=== PATIENT | male | born 1950 | race Caucasian/White ===

== ENCOUNTER 2019-01-05 21:39 | Inpatient (IN) ==
[2019-01-05] MEDS ORDERED: IOPAMIDOL 100 ML BOTTLE IV ONE (21:40)
[2019-01-05] MEDS ORDERED: 0.9 % SODIUM CHLORIDE 1,000 ML IV ONE (22:06)
[2019-01-05] MEDS ORDERED: methylPREDNISolone SOD SUCC 125 MG/2 ML VIAL IV ONE (22:06)
--- NOTE | 2019-01-05 22:11 | Emergency Department Note ---
SOB HPI - General Chief Complaint: Shortness of Breath/Dyspnea Stated Complaint: Short of breath Time Seen by Provider: 01/05/19 21:43 Source: patient Mode of arrival: ambulatory Limitations: no limitations - History of Present Illness 68-year-old male with a 2-day history of cough congestion and dyspnea. He is a smoker although he is cut back to 1-2 cigarettes/day about a year ago. EMS found him with oxygen levels around 88% so they started oxygen and gave him a breathing treatment en route. This did help but he is still requiring oxygen with exertion or coughing. Denies nausea vomiting diarrhea fever chills but he has had some sweats. General malaise. No swelling dysuria appetite issues - Related Data Home Medications Medication Instructions Recorded Confirmed Atorvastatin [Lipitor] 20 mg PO HS 01/05/19 01/05/19 Clopidogrel [Plavix] 75 mg PO DAILY 01/05/19 01/05/19 Hydrochlorothiazide [Oretic] 12.5 mg PO DAILY 01/05/19 01/05/19 Lisinopril [Zestril] 10 mg PO DAILY 01/05/19 01/05/19 Allergies Allergy/AdvReac Type Severity Reaction Status Date / Time Penicillins Allergy Mild Rash Verified 01/05/19 21:45 Review of Systems All systems ED: reviewed and negative except as stated. Past Medical History - Past Medical History Attestation: Yes: The following information was validated with the patient. Medical history: Reports: CAD (coronary artery disease), COPD, hypertension, myocardial infarction, peripheral artery disease. Denies: DM Surgical history ED: Reports: angioplasty/stent, vascular surgery - Social History smoking status: Current some day smoker Alcohol use: Reports: Frequently, Daily Physical Exam Resting and is able to talk in complete sentences. Wearing nasal cannula oxygen. Normocephalic atraumatic. Conjunctive are mildly injected bilaterally. No icterus. No nasal discharge or congestion. Oropharynx is pink and moist. Neck is supple without lymphadenopathy thyromegaly or carotid bruit. Heart is regular rate and rhythm no murmur appreciated. Lungs with wheezes rhonchi in all lung jerome. Possible rales as well. Abdomen soft nontender nondistended. Normoactive bowel sounds. No abdominal bruit. No rigidity guarding or peritoneal signs. No pedal edema. +2 radial pulse. Alert oriented Limitations: no limitations Course Vital Signs Temperature 97.1 F 01/05/19 21:40 Pulse Rate 108 H 01/05/19 21:40 Respiratory Rate 18 01/05/19 21:40 Blood Pressure 160/91 01/05/19 21:40 Pulse Oximetry (%) 91 01/05/19 21:40 Temperature 97.1 F 01/05/19 21:40 Pulse Rate 101 H 01/06/19 00:01 Respiratory Rate 23 H 01/06/19 00:01 Blood Pressure 171/87 01/06/19 00:01 Pulse Oximetry (%) 93 01/06/19 00:01 Shortness of Breath/Dyspnea - Lab Data Lab results reviewed: Yes I reviewed the patient's lab results. Result diagrams: 01/05/19 22:00 01/05/19 22:00 Lab Results 01/05/19 01/05/19 01/05/19 Range/Units 22:00 22:00 22:00 WBC 13.6 H (4.5-11.0) K/mcL RBC 4.56 (4.50-5.90) M/mcL Hgb 14.5 (13.5-16.5) g/dL Hct 43.4 (41.0-55.0) % MCV 95.1 (80.0-100.0) fL MCH 31.7 (26.0-34.0) pg MCHC 33.4 (31.0-36.0) g/dL RDW 12.9 (11.5-14.5) % Plt Count 228 (140-440) K/mcL MPV 9.3 (7.4-10.4) fL Gran % 73.9 (38.0-78.0) % Lymph % (Auto) 14.5 L (15.5-49.0) % [place] % (Auto) 6.3 (1.0-12.0) % Eos % (Auto) 5.0 (0.0-7.0) % Baso % (Auto) 0.3 (0.0-2.0) % Gran # 10.0 H (1.8-8.0) K/mcL Lymph # (Auto) 2.0 (1.5-4.8) K/mcL [place] # (Auto) 0.9 (0.1-0.9) K/mcL Eos # (Auto) 0.7 (0.0-0.7) K/mcL Baso # (Auto) 0 (0.0-0.3) K/mcL VBG Lactic Acid (0.5-2.0) mmol/L Sodium 138 (133-145) mmol/L Potassium 3.4 (3.3-5.1) mmol/L Chloride 102 (96-108) mmol/L Carbon Dioxide 22 (22-30) mmol/L Anion Gap 14.0 (8-16) BUN 14 (8-23) mg/dl Creatinine 0.7 (0.7-1.2) mg/dl GFR Calculation 96 Glucose 127 H (70-105) mg/dL Calcium 8.8 (8.6-10.4) mg/dl Magnesium 1.6 (1.6-2.5) mg/dL Total Bilirubin 0.3 (0.0-1.0) mg/dL AST 19 (0-37) U/l ALT 23 (0-40) U/l Alkaline Phosphatase 107 (39-117) U/L Troponin T (0-0.03) ng/ml NT-Pro-B Natriuret Pep < 50.0 (0-125) pg/ml Total Protein 6.9 (5.9-8.4) gm/dL Albumin 4.2 (3.2-5.2) gm/dL Globulin 2.7 (2.2-3.7) gm/dL Albumin/Globulin Ratio 1.6 (1.0-2.3) Lipase 10 (7-60) U/L Procalcitonin (<0.10) ng/mL 01/05/19 01/05/19 01/05/19 Range/Units 22:00 22:00 22:10 WBC (4.5-11.0) K/mcL RBC (4.50-5.90) M/mcL Hgb (13.5-16.5) g/dL Hct (41.0-55.0) % MCV (80.0-100.0) fL MCH (26.0-34.0) pg MCHC (31.0-36.0) g/dL RDW (11.5-14.5) % Plt Count (140-440) K/mcL MPV (7.4-10.4) fL Gran % (38.0-78.0) % Lymph % (Auto) (15.5-49.0) % [place] % (Auto) (1.0-12.0) % Eos % (Auto) (0.0-7.0) % Baso % (Auto) (0.0-2.0) % Gran # (1.8-8.0) K/mcL Lymph # (Auto) (1.5-4.8) K/mcL [place] # (Auto) (0.1-0.9) K/mcL Eos # (Auto) (0.0-0.7) K/mcL Baso # (Auto) (0.0-0.3) K/mcL VBG Lactic Acid 1.1 (0.5-2.0) mmol/L Sodium (133-145) mmol/L Potassium (3.3-5.1) mmol/L Chloride (96-108) mmol/L Carbon Dioxide (22-30) mmol/L Anion Gap (8-16) BUN (8-23) mg/dl Creatinine (0.7-1.2) mg/dl GFR Calculation Glucose (70-105) mg/dL Calcium (8.6-10.4) mg/dl Magnesium (1.6-2.5) mg/dL Total Bilirubin (0.0-1.0) mg/dL AST (0-37) U/l ALT (0-40) U/l Alkaline Phosphatase (39-117) U/L Troponin T < 0.01 (0-0.03) ng/ml NT-Pro-B Natriuret Pep (0-125) pg/ml Total Protein (5.9-8.4) gm/dL Albumin (3.2-5.2) gm/dL Globulin (2.2-3.7) gm/dL Albumin/Globulin Ratio (1.0-2.3) Lipase (7-60) U/L Procalcitonin < 0.05 (<0.10) ng/mL Arterial blood gases a pH of 7.45 PCO2 37 PO2 55 on 1 L nasal cannula Urinalysis [id number] dipstick normal specific gravity 1.010 - Radiology Data Radiology results reviewed: Yes I reviewed the patient's radiology results. Chest x-ray one view shows pleural scarring likely stigmata of COPD and cardio megaly. No acute infiltrate. Possible left upper field mass CT scan shows COPD but no infiltrate Disposition Pt seen by SUPERVISOR SANDBLASTER/PA only: No Clinical Impression: Acute exacerbation of chronic obstructive airways disease Summary: Patient seen and evaluated; put on oxygen. Workup started with chest x-ray and then CT. Laboratory with ABG After blood cultures will start Rocephin and Solu-Medrol. He is overall feeling better after getting the breathing treatment en route; we will reevaluate and see if he needs another one here soon Over the course of his ER stay he gradually improved; he remained with wheezes and rhonchi and he still required oxygen. so he will need to be admitted for COPD exacerbation with hypoxia. Discussed case with Dr. Dwight beyer, hospitalist who agreed to accept the patient for further care and evaluation in the hospital. Disposition: Xfer As Inpt ([facility]) Condition: Fair Referrals: Fast,Alfred, RETAIL FIELD REPRESENTATIVE [Primary Care Provider] -
[2019-01-05] MEDS ORDERED: cefTRIAXone 1 GM in DEXTROSE 5% IN WATER 50 ML IV SCH (22:15)
[2019-01-05] MEDS ORDERED: cefTRIAXone 1 GM VIAL ONE (22:25)
[2019-01-05 22:31] LABS: Basophils # (Auto) 0 K/mcL (0.0-0.3); Basophils % (Auto) 0.3 % (0.0-2.0); Eosinophils # (Auto) 0.7 K/mcL (0.0-0.7); Granulocytes % (Auto) 73.9 % (38.0-78.0); Lymphocytes % (Auto) 14.5 % (15.5-49.0); Mean Cell Volume 95.1 fL (80.0-100.0); Mean Corpuscular HGB Conc 33.4 g/dL (31.0-36.0); Monocytes # (Auto) 0.9 K/mcL (0.1-0.9); Monocytes % (Auto) 6.3 % (1.0-12.0); Platelet Count 228 K/mcL (140-440); RBC 4.56 M/mcL (4.50-5.90); Red Cell Distribution Width 12.9 % (11.5-14.5)
[2019-01-05 22:45] LABS: Lipase 10 U/L (7-60)
[2019-01-05 22:51] LABS: ALT/SGPT 23 U/l (0-40); Albumin 4.2 gm/dL (3.2-5.2); Albumin/Globulin Ratio 1.6 (1.0-2.3); Alkaline Phosphatase 107 U/L (39-117); Blood Urea Nitrogen 14 mg/dl (8-23)
[2019-01-05 22:52] LABS: proBNP < 50.0 pg/ml (0-125)
[2019-01-05] MEDS ORDERED: HYDROcodone/APAP 5/325MG TABLET PO PRN (23:51)
[2019-01-05] MEDS ORDERED: NALOXONE HCL 0.4 MG/ML VIAL IV PRN (23:51)
[2019-01-05] MEDS ORDERED: ONDANSETRON 4 MG/2 ML VIAL IV PRN (23:51)
[2019-01-06] MEDS: 0.9 % SODIUM CHLORIDE 1,000 ML IV SCH ×4 (02:13→23:45)
[2019-01-06] MEDS: IPRATROPIUM/ALBUTEROL 3 ML AMPUL.NEB NEB SCH ×5 (02:59→19:01)
--- NOTE | 2019-01-06 03:26 | XRay Report ---
CLINICAL INFORMATION: SOB COMPARISON: None. FINDINGS: The heart size, mediastinum and pulmonary vessels are unremarkable. The lungs are clear. There are no effusions. The bones and soft tissues are within normal limits. IMPRESSION: Normal chest. Interpreted and Authenticated by: Fausto Baeza 01/06/19
--- NOTE | 2019-01-06 04:22 | Cat Scan Report ---
CLINICAL INFORMATION: Shortness of breath COMPARISON: None. TECHNIQUE: 80 cc of Isovue-300 were injected intravenously, and 25 seconds later, 0.625 mm helical slices were obtained from the lung apices through the bases. Following reconstruction, 2.5 mm sagittal, coronal and axial reformations were processed and reviewed at lung, mediastinal and bone windows. 7 mm axial MIPS were also obtained to optimize pulmonary nodule detection. The exam was performed using radiation dose optimization techniques including, but not limited to, automated exposure control, adjustment of the mA and/or kV according to patient size and use of iterative reconstruction technique. FINDINGS: Mediastinal windows show mild cardiomegaly. There is a 19 mm low-attenuation region in the distal interventricular septum extending to the apex. This is quite vague representing either artifact or a focal subendocardial infarct. There is heavy calcification within the mitral and aortic valves. Heavy calcific atherosclerotic plaque within the visualized coronary arteries - particularly the left main, LAD and right coronary origin. The pulmonary arteries are normal in contour and caliber, but suboptimally opacified - no evidence of central emboli. Thoracic aorta is normal in contour and caliber. There are no abnormally enlarged lymph nodes in the mediastinal, hilar or axillary regions. Esophagus is grossly normal. The thyroid is unremarkable. Pulmonary parenchymal windows show moderate bronchitis or asthma featuring elevated lung volumes and wall thickening of the bronchi - particularly in the lower lobe regions. A small groundglass infiltrate is noted in the posterior right lower lobe. No nodules. Pleural spaces are normal. The bones and soft tissues tissues of the chest wall are unremarkable. Images through the superior abdomen show scattered calcifications in the pancreatic parenchyma suggesting prior pancreatic inflammation, but no evidence of active pancreatitis. Visualized kidneys, adrenal glands, spleen, gallbladder and liver unremarkable. IMPRESSION: 1. Small infiltrate, likely pneumonia, in the posterior right lower lobe 2. Moderate bronchitis or asthma 3. 19 mm low-attenuation lesion within the cardiac interventricular septum extending to the apex representing either artifact or a subendocardial infarct. Please correlate with EKG and other supportive clinical findings. There is extraordinarily heavy calcific plaque in the coronary arteries - particularly the left main proximal LAD and right coronary origin. Patient is at high risk for occlusive or subocclusive coronary stenosis. This be the reason for dyspnea 4. Scattered pancreatic calcifications typically stigmata of remote pancreatitis. No evidence of active pancreatitis Interpreted and Authenticated by: Fausto Baeza 01/06/19
[2019-01-06] MEDS ORDERED: methylPREDNISolone SOD SUCC 125 MG/2 ML VIAL IV SCH (06:00)
[2019-01-06] MEDS ORDERED: NICOTINE 21 MG PATCH TOPICAL SCH (10:00)
[2019-01-06] MEDS ORDERED: ACETAMINOPHEN 325 MG TABLET PO PRN ×2 (11:10→11:47)
[2019-01-06] MEDS ORDERED: ENOXAPARIN 40 MG/0.4 ML SYRINGE SQ SCH (11:10)
[2019-01-06] MEDS ORDERED: IPRATROPIUM/ALBUTEROL 3 ML AMPUL.NEB NEB PRN ×2 (11:10→11:47)
[2019-01-06] MEDS ORDERED: AZITHROMYCIN 500 MG in DEXTROSE 5% IN WATER 250 ML IV SCH ×2 (11:15→12:00)
[2019-01-06] MEDS ORDERED: LISINOPRIL 10 MG TABLET PO SCH (11:16)
[2019-01-06] MEDS ORDERED: cloNIDine HCL 0.1 MG TABLET PO PRN ×3 (11:16→11:47)
[2019-01-06] MEDS ORDERED: CLOPIDOGREL 75 MG TABLET PO SCH (11:16)
[2019-01-06] MEDS ORDERED: chlordiazePOXIDE 25 MG CAPSULE PO PRN ×2 (11:21→11:47)
[2019-01-06] MEDS ORDERED: FOLIC ACID 1 MG TABLET PO SCH (11:21)
[2019-01-06] MEDS ORDERED: LORazepam 2 MG/ML VIAL IV PRN ×2 (11:21→11:47)
[2019-01-06] MEDS ORDERED: THIAMINE 100 MG TABLET PO SCH (11:21)
--- NOTE | 2019-01-06 11:23 | Internal Med History&Physical ---
Medical - H&P: [facility] Patient information: Note initiated : 01/06/19 at 11:17 am Service Date, if different from initiated Date: [] Patient: Garry Phan 68 y/o M admitted on 01/06/19 for Short of breath. Chief Complaint: [] History of present illness: Mr. Phan is a 68 year old M Who presents to the ED with cough shortness of breath cold sweats. Patient states that 2 days ago he developed a productive cough cough of white clear sputum. At the same time he developed shortness of breath. It continued to worsen until yesterday when he also had cold sweats and thus came to the ED. He also complains of wheeziness and some chest tightness with the breathing. He did receive a nebulizer treatment by EMS which relieved a lot of his chest tightness and breathing. His did have influenza several weeks ago. Patient also reports coughing with food and drink at home and feeling like substance goes down the wrong pipe often. By EMS he was 88% and quite labored. He was given several breathing treatments in the ED but still requiring oxygen supplementation and still appeared labored. CT chest was done which showed what appeared to be a right lower lobe small infiltrate as well as bronchitis findings. His PaO2 on ABG was 55. Lactate and troponin were okay pro-calcitonin low. Review of Systems: Pertinent positives as above. Denies headache/fever/chills/nausea/vomiting/abdominal pain/diarrhea. Remaining 10 point review of systems reviewed negative Medical - H&P: PMH Medical history: Past medical history: COPD does not use oxygen at home HTN/HLD Tobacco abuse CAD with stent 12 years ago Peripheral arterial disease with stent to left leg by Dr. Capone in the past Past surgical history: Cardiac stent left lower extremity stent Family history: Mother had ovarian cancer Father had CAD peripheral vascular disease and COPD Social history: Patient smokes at least 5 cigarettes a day he has cut down Drinks at least 3 drinks of alcohol liquor daily Does not use a cane or walker to ambulate Lives at home with his Medical - H&P: Meds Home Medications Medication Instructions Recorded Confirmed Type Atorvastatin [Lipitor] 20 mg PO HS 01/05/19 01/06/19 History Clopidogrel [Plavix] 75 mg PO DAILY 01/05/19 01/06/19 History Hydrochlorothiazide [Oretic] 12.5 mg PO DAILY 01/05/19 01/05/19 History Lisinopril [Zestril] 10 mg PO DAILY 01/05/19 01/05/19 History Allergies Allergy/AdvReac Type Severity Reaction Status Date / Time Penicillins Allergy Mild Rash Verified 01/05/19 21:45 Medical - H&P: Exam - Constitutional Vitals: Temp Pulse Resp BP Pulse Ox 98.2 F 104 H 20 157/81 88 L 01/06/19 08:00 01/06/19 08:00 01/06/19 08:00 01/06/19 08:00 01/06/19 08:00 Exam: General: Alert, Awake, No acute Distress Eyes/N/T: EOMI, PEERL, MMM Head/Neck: neck supple, normocephalic atraumatic CV: RRR, No murmurs, normal s1/s2 Pulm: Significantly diminished bilaterally, expiratory wheezing bilaterally, prolonged expiratory phase abd: soft, nontender, +BS x4 Ext: no clubbing/cyanosis/edema Neuro: Alert, no focal deficits, moves all extremities, CN 2-12 grossly intact, symmetrical strength b/l upper/lower, sensations intact b/l upper/lower Skin: warm/dry Medical - H&P: Reslt - Labs CBC & Chem 7: 01/05/19 22:00 01/05/19 22:00 Labs: Short CBC 01/05/19 Range/Units 22:00 WBC 13.6 H (4.5-11.0) K/mcL Hgb 14.5 (13.5-16.5) g/dL Hct 43.4 (41.0-55.0) % Plt Count 228 (140-440) K/mcL BMP 01/05/19 22:00 Sodium 138 Potassium 3.4 Chloride 102 Carbon Dioxide 22 BUN 14 Creatinine 0.7 Glucose 127 H Calcium 8.8 Cardiac Enzymes 01/05/19 Range/Units 22:00 Troponin T < 0.01 (0-0.03) ng/ml Liver Function 01/05/19 Range/Units 22:00 Total Bilirubin 0.3 (0.0-1.0) mg/dL AST 19 (0-37) U/l ALT 23 (0-40) U/l Alkaline Phosphatase 107 (39-117) U/L Albumin 4.2 (3.2-5.2) gm/dL - Impressions CT chest read as bronchitis and small infiltrate right lower lobe Medical - H&P: A/P - Narrative A/P Narrative: A: *AECOPD: Likely viral induced, sick contacts *Acute hypoxic respiratory failure: Secondary to above *Tobacco abuse: *Alcohol use: *CAD w/stent 12yrs ago: *PVD with LLE stent by dr Capone in past: *HTN/HLD: *Concern for dysphasia with aspiration: * * P: -Steroids (wean) -empiric abx -Is/Acapella, nebs -wean o2 as able -CIWA, vitamins -Continue Plavix/lisinopril/statin -ST eval -Respiratory viral panel pending -Smoking and alcohol cessation counseling -ppx: Lovenox Medical - H&P: Qual - VTE Deep Vein Thrombosis/Pulmonary Embolism Present on Admission: No
[2019-01-06] MEDS ORDERED: HYDROcodone/APAP 5/325MG TABLET PO PRN (11:47)
[2019-01-06] MEDS ORDERED: ONDANSETRON 4 MG/2 ML VIAL IV PRN (11:47)
[2019-01-06] MEDS ORDERED: NALOXONE HCL 0.4 MG/ML VIAL IV PRN (11:47)
[2019-01-06 12:12] LABS: Eosinophils % (Manual) 4 % (0-7); Lymphocytes % 19 % (15-49); Monocytes % (Manual) 8 % (1-12); Platelet Estimate NORMAL (NORMAL); RBC Morphology NORMAL (NORMAL); Segmented Neutrophils % 69 % (38-78)
[2019-01-06] MEDS: FOLIC ACID 1 MG TABLET PO SCH (12:32)
[2019-01-06] MEDS: THIAMINE 100 MG TABLET PO SCH (12:33)
[2019-01-06] MEDS: CLOPIDOGREL 75 MG TABLET PO SCH (12:33)
[2019-01-06] MEDS: LISINOPRIL 10 MG TABLET PO SCH (12:33)
[2019-01-06] MEDS: NICOTINE 21 MG PATCH TOPICAL SCH (12:35)
[2019-01-06] MEDS ORDERED: IPRATROPIUM/ALBUTEROL 3 ML AMPUL.NEB NEB SCH (13:00)
[2019-01-06] MEDS ORDERED: 0.9 % SODIUM CHLORIDE 10 ML SYRINGE IV SCH (14:00)
[2019-01-06] MEDS: methylPREDNISolone SOD SUCC 125 MG/2 ML VIAL IV SCH ×2 (14:25→22:36)
[2019-01-06] MEDS: 0.9 % SODIUM CHLORIDE 10 ML SYRINGE IV SCH ×2 (14:55→22:36)
[2019-01-06] MEDS ORDERED: ATORVASTATIN 20 MG TABLET PO SCH (21:00)
[2019-01-06] MEDS: ATORVASTATIN 20 MG TABLET PO SCH (22:36)
[2019-01-06] MEDS: FLUTICASONE/SALMETEROL 250/50 INHALER #14 INH SCH (22:37)
[2019-01-07] MEDS: IPRATROPIUM/ALBUTEROL 3 ML AMPUL.NEB NEB SCH ×4 (01:18→19:08)
[2019-01-07] MEDS: methylPREDNISolone SOD SUCC 125 MG/2 ML VIAL IV SCH (05:25)
[2019-01-07] MEDS: 0.9 % SODIUM CHLORIDE 10 ML SYRINGE IV SCH ×3 (05:26→20:23)
[2019-01-07 05:52] LABS: Basophils # (Auto) 0 K/mcL (0.0-0.3); Basophils % (Auto) 0 % (0.0-2.0); Eosinophils # (Auto) 0 K/mcL (0.0-0.7); Eosinophils % (Auto) 0 % (0.0-7.0); Granulocytes % (Auto) 92.6 % (38.0-78.0); Lymphocytes # (Auto) 0.7 K/mcL (1.5-4.8); Mean Cell Volume 99.3 fL (80.0-100.0); Mean Corpuscular HGB Conc 32.9 g/dL (31.0-36.0); Monocytes # (Auto) 0.6 K/mcL (0.1-0.9); Monocytes % (Auto) 3.4 % (1.0-12.0); Platelet Count 191 K/mcL (140-440); RBC 3.77 M/mcL (4.50-5.90); Red Cell Distribution Width 13.6 % (11.5-14.5)
[2019-01-07 06:05] LABS: ALT/SGPT 15 U/l (0-40); Albumin 3.7 gm/dL (3.2-5.2); Albumin/Globulin Ratio 1.7 (1.0-2.3); Alkaline Phosphatase 79 U/L (39-117); Bilirubin,Direct < 0.2 mg/dL (0.0-0.3); Blood Urea Nitrogen 14 mg/dl (8-23); Gamma Glutamyl Transpeptidase 19 U/L (8-61); Uric Acid 5.3 mg/dL (2.5-8.0)
--- NOTE | 2019-01-07 07:44 | Internal Med Progress Note ---
Medical - PN: Subj Patient information: Note initiated : 01/07/19 at 7:39 am Service Date, if different from initiated Date: [] Patient: Garry Phan 68 y/o M admitted on 01/06/19 for Short of breath. Chief Complaint: [] Interval history: Mr. Phan is a 68 year old M Who presents to the ED with cough shortness of breath cold sweats. Patient states that 2 days ago he developed a productive cough cough of white clear sputum. At the same time he developed shortness of breath. It continued to worsen until yesterday when he also had cold sweats and thus came to the ED. He also complains of wheeziness and some chest tightness with the breathing. He did receive a nebulizer treatment by EMS which relieved a lot of his chest tightness and breathing. His did have influenza several weeks ago. Patient also reports coughing with food and drink at home and feeling like substance goes down the wrong pipe often. By EMS he was 88% and quite labored. He was given several breathing treatments in the ED but still requiring oxygen supplementation and still appeared labored. CT chest was done which showed what appeared to be a right lower lobe small infiltrate as well as bronchitis findings. His PaO2 on ABG was 55. Lactate and troponin were okay pro-calcitonin low. 01/07 Slept well. Continues to feel better. Weaning down oxygen. Cough much improved. No shortness of breath at rest and minimal exertion. Appears to be having mild withdrawal from alcohol. No complaints. Review of Systems: denies headache/fever/chills/nausea/vomiting/chest or abdominal pain/diarrhea. Otherwise see above. - Constitutional Vitals: Vital Signs Temp Pulse Resp BP Pulse Ox 97.6 F 96 H 20 118/70 96 01/07/19 04:00 01/07/19 04:00 01/07/19 04:00 01/07/19 04:00 01/07/19 04:00 Period Temp Pulse Resp BP Sys/Watkins Pulse Ox Last 24 Hr 97.6 F-98.2 F 96-120 18-22 118-157/69-82 88-96 Intake and Output 01/06/19 01/07/19 01/07/19 21:59 05:59 13:59 Intake Total 1640 1350 Output Total 1900 475 Balance -260 875 Weight 85.729 kg Intake & Output: Intake & Output 01/06/19 01/07/19 01/07/19 21:59 05:59 13:59 Intake Total 1640 1350 Output Total 1900 475 Balance -260 875 Weight 85.729 kg Intake: IV 1000 Sodium Chloride 0.9% 1,000 ml @ 1000 100 mls/hr IV .Q10H [facility] Rx#: [id number] Oral 1640 350 Output: Void Amount 1900 475 Other: Meal Dinner Percent of Meal Consumed 100% Feeding Ability Independent Urine Appearance Clear Urine Color Pale Exam: General: Alert, Awake, No acute Distress Eyes/N/T: EOMI, Head/Neck: neck supple, CV: RRR, No murmurs, Pulm: Improving aeration bilaterally, mild expiratory wheezing bilaterally improving, prolonged expiratory phase abd: soft, nontender, +BS x4 Ext: no clubbing/cyanosis/edema Neuro: Alert, no focal deficits, moves all extremities, Skin: warm/dry Medical - PN: Obj Da - Labs CBC & Chem 7: 01/07/19 04:10 01/07/19 04:10 Labs: Abnormal Lab Results 01/07/19 01/07/19 01/05/19 04:10 04:10 22:00 WBC 16.7 H RBC 3.77 L Hgb 12.3 L Hct 37.4 L Gran % 92.6 H Lymph % (Auto) 4.0 L Gran # 15.5 H Lymph # (Auto) 0.7 L Chloride 110 H Glucose 161 H 127 H 01/05/19 22:00 WBC 13.6 H RBC Hgb Hct Gran % Lymph % (Auto) 14.5 L Gran # 10.0 H Lymph # (Auto) Chloride Glucose Meds: Medications Acetaminophen (Tylenol) 650 mg PO Q6HP PRN PRN Reason: PAIN/FEVER > 101 Hydrocodone Bitart/Acetaminophen ([place] 5/325mg) 1 tab PO Q4HP PRN PRN Reason: PAIN LEVEL 3-6 Albuterol/Ipratropium (Duoneb) 3 ml NEB Q4HRT PRN PRN Reason: Bronchospasm Albuterol/Ipratropium (Duoneb) 3 ml NEB Q6HRT [facility] Last Admin: 01/07/19 07:36 Dose: 3 ml Documented by: Atorvastatin Calcium (Lipitor) 20 mg PO HS [facility] Last Admin: 01/06/19 22:36 Dose: 20 mg Documented by: Chlordiazepoxide HCl (Librium) 50 mg PO Q4HP PRN PRN Reason: Alcohol Withdrawal Clonidine HCl (Catapres) 0.1 mg PO Q4HP PRN PRN Reason: SBP>150 or alcohol withdrawal Clopidogrel Bisulfate (Plavix) 75 mg PO DAILY [facility] Last Admin: 01/06/19 12:33 Dose: 75 mg Documented by: Enoxaparin Sodium (Lovenox) 40 mg SQ DAILY [facility] Folic Acid (Folic Acid) 1 mg PO DAILY [facility] Last Admin: 01/06/19 12:32 Dose: 1 mg Documented by: Hydrochlorothiazide (Oretic) 12.5 mg PO DAILY [facility] Azithromycin 500 mg/ Dextrose 250 mls @ 250 mls/hr IV DAILY [facility]; Protocol Stop: 01/08/19 09:59 Sodium Chloride (Sodium Chloride 0.9%) 1,000 mls @ 100 mls/hr IV .Q10H [facility] Last Admin: 01/06/19 23:45 Dose: 100 mls/hr Documented by: Iron Carb/Multivit/Fleming/Folic Acid (Multivitamin W/Minerals) 1 tab PO DAILY [facility] Lisinopril (Zestril) 10 mg PO DAILY [facility] Last Admin: 01/06/19 12:33 Dose: 10 mg Documented by: Lorazepam (Ativan) 0 mg IV Q4HP PRN; Protocol PRN Reason: Alcohol Withdrawal Methylprednisolone Sodium Succinate (Solu-Medrol) 80 mg IV Q8 [facility] Last Admin: 01/07/19 05:25 Dose: 80 mg Documented by: Naloxone HCl (Narcan) 0.1 mg IV Q2MIN PRN PRN Reason: Opiate Reversal Nicotine (Nicoderm) 21 mg TOPICAL DAILY@1000 [facility] Last Admin: 01/06/19 12:35 Dose: 21 mg Documented by: Ondansetron HCl (Zofran) 4 mg IV Q4HP PRN PRN Reason: Nausea And Vomiting Fluticasone/Salmeterol (Advair 250-50 Diskus) 1 puff INH BID [facility] Last Admin: 01/06/19 22:37 Dose: Not Given Documented by: Sodium Chloride (Saline Flush) 10 ml IV Q8 [facility] Last Admin: 01/07/19 05:26 Dose: 10 ml Documented by: Thiamine HCl (Vitamin B1) 100 mg PO QDAY JOSÉ LUIS Last Admin: 01/06/19 12:33 Dose: 100 mg Documented by: Medical - PN: A/P - Time Spent With Patient Total time spent is greater than 50% in coordination of care (as documented) at patient's floor/unit and/or counseling patient: - Narrative A/P Narrative: A: *AECOPD: Likely viral induced, sick contacts -only rhinovirus on resp viral panel *Acute hypoxic respiratory failure: Secondary to above -on 2.5l NC sats 96 *Tobacco abuse: *Alcohol use with W/D: *CAD w/stent 12yrs ago: *PVD with LLE stent by dr Capone in past: *HTN/HLD: *Oropharyngeal dysphasia, mild: * P: -Steroids (wean) -empiric abx d/c -Is/Acapella, nebs -wean o2 as able -CIWA, vitamins -Continue Plavix/lisinopril/statin -ST eval, dysphagia diet -Smoking and alcohol cessation counseling -ppx: Lovenox Medical - PN: Qual - VTE Deep Vein Thrombosis/Pulmonary Embolism Present on Admission: No
[2019-01-07] MEDS ORDERED: chlordiazePOXIDE 25 MG CAPSULE PO ONE (08:43)
[2019-01-07] MEDS ORDERED: POLYETHYLENE GLYCOL 3350 17 GM PACKET PO ONE (08:46)
[2019-01-07] MEDS ORDERED: MULTIVIT,THER IRON,CA,FA & MIN 1 TABLET PO SCH (09:00)
[2019-01-07] MEDS ORDERED: HYDROCHLOROTHIAZIDE 12.5 MG CAPSULE PO SCH (09:00)
[2019-01-07] MEDS: MULTIVIT,THER IRON,CA,FA & MIN 1 TABLET PO SCH (09:48)
[2019-01-07] MEDS: CLOPIDOGREL 75 MG TABLET PO SCH (09:48)
[2019-01-07] MEDS: HYDROCHLOROTHIAZIDE 12.5 MG CAPSULE PO SCH (09:48)
[2019-01-07] MEDS: FOLIC ACID 1 MG TABLET PO SCH (09:49)
[2019-01-07] MEDS: LISINOPRIL 10 MG TABLET PO SCH (09:49)
[2019-01-07] MEDS: NICOTINE 21 MG PATCH TOPICAL SCH (09:49)
[2019-01-07] MEDS: ENOXAPARIN 40 MG/0.4 ML SYRINGE SQ SCH (09:49)
[2019-01-07] MEDS: THIAMINE 100 MG TABLET PO SCH (09:49)
[2019-01-07] MEDS: FLUTICASONE/SALMETEROL 250/50 INHALER #14 INH SCH ×2 (10:08→20:10)
[2019-01-07] MEDS: 0.9 % SODIUM CHLORIDE 1,000 ML IV SCH ×2 (10:24→20:26)
[2019-01-07] MEDS: AZITHROMYCIN 500 MG in DEXTROSE 5% IN WATER 250 ML IV SCH (10:25)
--- NOTE | 2019-01-07 11:02 | Discharge Summary ---
Medical - DS: Prov Patient information: Note initiated : 01/07/19 at 11:00 am Service Date, if different from initiated Date: [] Patient: Garry Phan 68 y/o M admitted on 01/06/19 for Short of breath. Chief Complaint: [] Date of admission: 01/06/19 01:10 Discharge date: 01/08/19 Primary care physician: [facility] Consults: 01/05/19 Consult to Physician [CONS] Stat Comment: Consulting Provider: Dwight Nicolas Reason For Exam: Physician to Consult Medical - DS: Meds - Discharge Medications Prescriptions: Fluticasone/Salmeterol [Advair 250-50 Diskus] 1 puff INH BID #1 inhaler predniSONE [Prednisone] 40 mg PO QAC #1 tab Active and Home Medications: Home Medications Atorvastatin [Lipitor] 20 mg PO HS 01/05/19 [History Confirmed 01/06/19 Last Taken 01/05/19 21:00] Clopidogrel [Plavix] 75 mg PO DAILY 01/05/19 [History Confirmed 01/06/19 Last Taken 01/05/19 08:00] Hydrochlorothiazide [Oretic] 12.5 mg PO DAILY 01/05/19 [History Confirmed 01/05/19 Last Taken 01/05/19 08:00] Lisinopril [Zestril] 10 mg PO DAILY 01/05/19 [History Confirmed 01/05/19 Last Taken 01/05/19 08:00] Medical - DS: Hosp Hospital course: Mr. Phan is a 68 year old M Mr. Phan is a 68 year old M Who presents to the ED with cough shortness of breath cold sweats. Patient states that 2 days ago he developed a productive cough cough of white clear sputum. At the same time he developed shortness of breath. It continued to worsen until yesterday when he also had cold sweats and thus came to the ED. He also complains of wheeziness and some chest tightness with the breathing. He did receive a nebulizer treatment by EMS which relieved a lot of his chest tightness and breathing. His did have influenza several weeks ago. Patient also reports coughing with food and drink at home and feeling like substance goes down the wrong pipe often. By EMS he was 88% and quite labored. He was given several breathing treatments in the ED but still requiring oxygen supplementation and still appeared labored. CT chest was done which showed what appeared to be a right lower lobe small infiltrate as well as bronchitis findings. His PaO2 on ABG was 55. Lactate and troponin were okay pro-calcitonin low. 01/07 Slept well. Continues to feel better. Weaning down oxygen. Cough much improv ed. No shortness of breath at rest and minimal exertion. Appears to be having mild withdrawal from alcohol. No complaints. 01/08 Doing well off oxygen and ambulated without oxygen feeling better. Stable for discharge Discharge diagnosis: Acute exacerbation COPD hypoxic respiratory failure Secondary discharge diagnosis: Tobacco abuse alcohol abuse CAD PVD hypertension dysphasia - Time Spent with Patient Total time spent providing and/or coordinating discharge services: Greater than 30 minutes Medical - DS: Exam - Constitutional Vitals: Vital Signs Temp Pulse Pulse Resp BP Pulse Ox 01/07/19 10:46 22 90 01/07/19 08:00 97.6 F 93 H 22 117/68 91 01/07/19 07:44 97 H 18 93 01/07/19 07:40 98 H 18 01/07/19 04:00 97.6 F 96 H 20 118/70 96 01/07/19 01:26 97.9 F 98 H 18 132/69 95 01/06/19 22:15 98.2 F 112 H 18 132/72 93 01/06/19 20:00 98.0 F 108 H 18 143/82 93 01/06/19 19:05 116 H 22 01/06/19 16:35 98.2 F 01/06/19 16:00 97.8 F 117 H 22 144/75 91 01/06/19 13:30 118 H 20 01/06/19 12:00 97.9 F 107 H 22 150/79 91 Intake and Output 01/06/19 01/07/19 01/07/19 21:59 05:59 13:59 Intake Total 1640 1350 1000 Output Total 1900 475 700 Balance -260 875 300 Intake: IV 1000 1000 Sodium Chloride 0.9% 1,000 ml @ 1000 1000 100 mls/hr IV .Q10H JOSÉ LUIS Rx#: [id number] Oral 1640 350 Output: Void Amount 1900 475 700 Other: Meal Dinner Percent of Meal Consumed 100% Feeding Ability Independent Urine Appearance Clear Clear Urine Color Pale Bright Yellow Urine Odor Normal Weight 85.729 kg 85.729 kg Patient Weight 01/08/19 05:59 Weight 85.729 kg Medical - DS: Data Labs on day of discharge: Labs from last 24 hours 01/07/19 01/07/19 01/06/19 04:10 04:10 22:00 WBC 16.7 H RBC 3.77 L Hgb 12.3 L Hct 37.4 L MCV 99.3 MCH 32.7 MCHC 32.9 RDW 13.6 Plt Count 191 MPV 9.9 Gran % 92.6 H Lymph % (Auto) 4.0 L [place] % (Auto) 3.4 Eos % (Auto) 0 Baso % (Auto) 0 Gran # 15.5 H Lymph # (Auto) 0.7 L [place] # (Auto) 0.6 Eos # (Auto) 0 Baso # (Auto) 0 Total Counted Seg Neutrophils % Band Neutrophils % Not Reportable Lymphocytes % Monocytes % (Manual) Eosinophils % (Manual) Platelet Estimate RBC Morphology Sodium 144 Potassium 4.0 Chloride 110 H Carbon Dioxide 23 Anion Gap 11.0 BUN 14 Creatinine 0.7 GFR Calculation 96 Glucose 161 H Uric Acid 5.3 Calcium 8.6 Phosphorus 3.2 Magnesium 1.8 Total Bilirubin 0.2 Direct Bilirubin < 0.2 GGT 19 AST 14 ALT 15 Alkaline Phosphatase 79 Lactate Dehydrogenase 140 Total Protein 5.9 Albumin 3.7 Globulin 2.2 Albumin/Globulin Ratio 1.7 Triglycerides 35 01/05/19 22:00 WBC RBC Hgb Hct MCV MCH MCHC RDW Plt Count MPV Gran % Lymph % (Auto) [place] % (Auto) Eos % (Auto) Baso % (Auto) Gran # Lymph # (Auto) [place] # (Auto) Eos # (Auto) Baso # (Auto) Total Counted 100 Seg Neutrophils % 69 Band Neutrophils % Lymphocytes % 19 Monocytes % (Manual) 8 Eosinophils % (Manual) 4 Platelet Estimate Normal RBC Morphology Normal Sodium Potassium Chloride Carbon Dioxide Anion Gap BUN Creatinine GFR Calculation Glucose Uric Acid Calcium Phosphorus Magnesium Total Bilirubin Direct Bilirubin GGT AST ALT Alkaline Phosphatase Lactate Dehydrogenase Total Protein Albumin Globulin Albumin/Globulin Ratio Triglycerides Preliminary micro results at discharge 01/05/19 22:15 Blood Culture - Preliminary Blood 01/05/19 22:25 Blood Culture - Preliminary Blood Medical - DS: A/P - Patient/Caregiver Discharge Instructions Activity: increase activity as tolerated Diet: Cardiac ([place] Thick liquids) Prescriptions: predniSONE [Prednisone] 40 mg PO [facility] #1 tab - Follow up Plan Follow up with: Alfred Nguyen ARNP [Primary Care Provider] - Disposition: Home, Self-Care Prognosis: Fair Rehab Potential: Fair Overall status at discharge: patient is back to baseline Medical - DS: Qual - VTE Deep Vein Thrombosis/Pulmonary Embolism Present on Admission: No
[2019-01-07] MEDS: methylPREDNISolone SOD SUCC 40 MG/ML VIAL IV SCH ×2 (16:10→22:06)
[2019-01-07] MEDS: ATORVASTATIN 20 MG TABLET PO SCH (20:11)
[2019-01-08] MEDS: IPRATROPIUM/ALBUTEROL 3 ML AMPUL.NEB NEB SCH ×2 (00:48→08:16)
[2019-01-08] MEDS: 0.9 % SODIUM CHLORIDE 1,000 ML IV SCH (04:38)
[2019-01-08] MEDS: 0.9 % SODIUM CHLORIDE 10 ML SYRINGE IV SCH (04:38)
[2019-01-08] MEDS: methylPREDNISolone SOD SUCC 40 MG/ML VIAL IV SCH (05:46)
[2019-01-08 06:02] LABS: Basophils # (Auto) 0 K/mcL (0.0-0.3); Basophils % (Auto) 0 % (0.0-2.0); Eosinophils # (Auto) 0 K/mcL (0.0-0.7); Eosinophils % (Auto) 0 % (0.0-7.0); Granulocytes % (Auto) 91.3 % (38.0-78.0); Lymphocytes # (Auto) 0.9 K/mcL (1.5-4.8); Mean Cell Volume 99.1 fL (80.0-100.0); Mean Corpuscular HGB Conc 33.4 g/dL (31.0-36.0); Monocytes # (Auto) 0.6 K/mcL (0.1-0.9); Monocytes % (Auto) 3.7 % (1.0-12.0); Platelet Count 197 K/mcL (140-440); RBC 3.77 M/mcL (4.50-5.90); Red Cell Distribution Width 14.1 % (11.5-14.5)
[2019-01-08 06:09] LABS: Blood Urea Nitrogen 19 mg/dl (8-23)
[2019-01-08] MEDS: THIAMINE 100 MG TABLET PO SCH (09:03)
[2019-01-08] MEDS: LISINOPRIL 10 MG TABLET PO SCH (09:03)
[2019-01-08] MEDS: FOLIC ACID 1 MG TABLET PO SCH (09:03)
[2019-01-08] MEDS: MULTIVIT,THER IRON,CA,FA & MIN 1 TABLET PO SCH (09:03)
[2019-01-08] MEDS: CLOPIDOGREL 75 MG TABLET PO SCH (09:03)
[2019-01-08] MEDS: HYDROCHLOROTHIAZIDE 12.5 MG CAPSULE PO SCH (09:04)
[2019-01-08] MEDS: ENOXAPARIN 40 MG/0.4 ML SYRINGE SQ SCH (09:04)
[2019-01-08] MEDS: FLUTICASONE/SALMETEROL 250/50 INHALER #14 INH SCH (09:05)
[2019-01-08] MEDS: NICOTINE 21 MG PATCH TOPICAL SCH (09:17)
[2019-01-08] MEDS: AZITHROMYCIN 500 MG in DEXTROSE 5% IN WATER 250 ML IV SCH (09:19)
== END 2019-01-08 11:20 | disposition home or self-care (01) | DRG 190 ==
LOC: ED 21:39 → MEDSUR 01-06 01:10
PROVIDERS: ADMIT Internal Medicine; ATTEND Internal Medicine